=== PATIENT | female | born 1965 | race Caucasian/White ===

== ENCOUNTER 2020-12-19 07:03 | Emergency (ER) | payer SELFPAY ==
[2020-12-19] MEDS ORDERED: Ketorolac 30 MG/ML SDV IM ONE (09:00)
[2020-12-19] MEDS ORDERED: Ketorolac 30 MG/ML SDV ONE (09:02)
--- NOTE | 2020-12-19 09:48 | EDM.PDOC ---
ED HPI GENERAL MEDICAL PROBLEM - General Stated Complaint: RIGHT SHOULDER PAIN Time Seen by Provider: 12/19/20 07:05 - History of Present Illness INITIAL COMMENTS - FREE TEXT/NARRATIVE: History of present illness: [] This patient is shoulder pain for 4 days. She had a muscle strain at that time but no fall and no crashing the car. She has no other complaint. The shoulder pain is worse with range of motion. Neck and elbow did not have pain. Review of systems: As per history of present illness and below otherwise all systems reviewed and negative. Past medical history: As per history of present illness and as reviewed below otherwise noncontr ibutory. Surgical history: As per history of present illness and as reviewed below otherwise noncontributory. Social history: No reported history of drug or alcohol abuse. Family history: As per history of present illness and as reviewed below otherwise noncontributory. Physical exam: Constitutional - well developed, well-nourished and in no acute distress HEENT - normocephalic, no evidence of trauma - external nose and mouth normal - no mass in neck and no JVD - mucosae moist EYES - full EOM, PERRL, no icterus - no evidence of inflammation, injection, or drainage Respiratory - no respiratory distress, equal bilateral expansion Circulatory-capillary refill and warmth normal in the right upper extremity Musculoskeletal tender right shoulder only. Normal range of motion but pain with range of motion. Straight C-spine elbow and wrist are nontender. Patient is normal distal right upper extremity. No gross deformity of long bones or joints - no tenderness, swelling or edema Neurologic -median ulnar and radial motor sensory intact right upper extremity alert and oriented times four - CN II-XII grossly intact - motor sensory and coordination symmetrically normal Psychiatric - appropriate mood and affect with normal thought content Hematologic - No petechiae or purpura - mucosa appropriate color and sclera not pale - normal nail bed color and refill Integument - no rash or evidence of trauma - normal turgor Diagnostics: [] Therapeutics: [] Impression: [] Plan: [] Definitive disposition and diagnosis as appropriate pending reevaluation and review of above. ED ROS GENERAL - Review of Systems Review Of Systems: Comprehensive ROS is negative, except as noted in HPI. ED EXAM, GENERAL - Physical Exam Exam: See Below Free Text/Narrative:: My physical exam is in the HPI Course - Orders/Labs/Meds Orders: Active Orders 24 hr Category Date Time Status Shoulder Comp Rt [CR] Stat Exams 12/19/20 08:55 Taken Meds: Medications Discontinued Medications Generic Name Dose Route Start Last Admin Trade Name Booker PRN Reason Stop Dose Admin Ketorolac Tromethamine Confirm 12/19/20 09:02 Ketorolac 30 Mg/Ml Sdv Administered 12/19/20 09:03 Dose 30 mg .ROUTE .STK-MED ONE Departure - Departure Time of Disposition: 09:01 Disposition: Home, Self-Care 01 Condition: Good Clinical Impression: Right shoulder strain - Discharge Information Instructions: Muscle Strain, [id number] Referrals: PCP,None [Primary Care Provider] - Additional Instructions: [facility] - [facility] Professional Building [address] [place] [address], [address] [place] [address] [facility] - [facility] [address] [place] [id number] [id number] The following information is given to patients seen in the emergency department who are being discharged to home. This information is to outline your options for follow-up care. We provide all patients seen in our emergency department with a follow-up referral. The need for follow-up, as well as the timing and circumstances, are variable depending upon the specifics of your emergency department visit. If you don't have a primary care physician on staff, we will provide you with a referral. We always advise you to contact your personal physician following an emergency department visit to inform them of the circumstance of the visit and for follow-up with them and/or the need for any referrals to a consulting specialist. The emergency department will also refer you to a specialist when appropriate. This referral assures that you have the opportunity for follow-up care with a specialist. All of these measure are taken in an effort to provide you with optimal care, which includes your follow-up. Under all circumstances we always encourage you to contact your private physician who remains a resource for coordinating your care. When calling for follow-up care, please make the office aware that this follow-up is from your recent emergency room visit. If for any reason you are refused follow-up, please contact the [facility] Emergency Department at and asked to speak to the emergency department charge nurse. - My Orders Last 24 Hours: My Active Orders 12/19/20 08:55 Shoulder Comp Rt [CR] Stat - Assessment/Plan Last 24 Hours: My Active Orders 12/19/20 08:55 Shoulder Comp Rt [CR] Stat
--- NOTE | 2020-12-19 10:32 | CR ---
HISTORY: Shoulder pain. Strain. TECHNIQUE: Right shoulder 2 views. COMPARISON: None. FINDINGS: No fracture. No dislocation. Glenohumeral joint space is not well profiled on these images. Mild degenerative changes of the AC joint. IMPRESSION: No acute bone abnormality. Dictated by Hever Nolasco MD @ 12/19/2020 10:31:[address] Hever Nolasco @ Dec 19 2020 10:31AM
== END 2020-12-19 09:32 | disposition home or self-care (01) ==
LOC: MW.ED 07:03
DX: S46.911A Strain of unspecified muscle, fascia and tendon at shoulder and upper arm level, right arm, initial encounter (principal); F17.200 Nicotine dependence, unspecified, uncomplicated; Z88.0 Allergy status to penicillin; Z88.2 Allergy status to sulfonamides; X50.0XXA Overexertion from strenuous movement or load, initial encounter
CPT/HCPCS: 73030; 96372; 99283; J1885